=== PATIENT | male | born 1945 | race Caucasian/White ===

== ENCOUNTER → 2016-07-07 | Outpatient (CLI) | payer MEDICARE, BC ==
--- NOTE | 2016-07-07 11:47 | MRI ---
EXAM DESCRIPTION: Lumbar Spine w/o Contrast CLINICAL HISTORY: LOW BACK PAIN COMPARISON: None Available. TECHNIQUE: MRI of the lumbar spine is performed according to our usual protocol with axial and sagittal multi sequence imaging. FINDINGS: Vertebral body height, marrow signal and AP alignment are unremarkable. There is endplate edema noted at multiple levels. Intervertebral disc space at S1-S2 noted. L1-2: Facet degeneration, ligamentum flavum thickening and a 3 mm circumferential disc bulge. The midline diameter of the spinal canal is narrowed to 11 mm. Bilateral neuroforamen are adequate. L2-3: Vertebral disc osteophyte complex and facet degeneration. The midline diameter spinal canal is narrowed to 9 mm due to the 4 mm circumferential disc osteophyte complex. Bilateral neuroforamen are mildly narrowed. L3-4: There is a Schmorl's node noted within the inferior endplate of L3. There is extensive surrounding edema noted within the marrow. The midline diameter of the spinal canal is adequate there is moderate bilateral neuroforaminal narrowing, right greater than left. L4-5: Circumferential disc osteophyte complex and facet degeneration. The midline diameter of the thecal sac is mildly narrowed at 9 mm. Schmorl's node noted within the inferior endplate of L4. No significant surrounding edema noted within the marrow. Bilateral neuroforamen are mildly narrowed, left greater than right. L5-S1: Circumferential disc osteophyte complex and facet degeneration. The midline diameter of the thecal sac is mildly narrowed to 9 mm. Severe right and moderate left neuroforaminal narrowing. IMPRESSION: 1. Today's exam demonstrates multilevel degenerative change as described above. There is an acute Schmorl's node along the inferior endplate of L3 which could result in localized back pain. 2. Multilevel neuroforaminal narrowing with contact of the exiting right L5 nerve root. This could result in a right L5 radiculopathy, if the patient is symptomatic. Electronically signed by: Man Rodrigues MD 07/07/2016 11:46 AM CDT
== END | disposition home or self-care (01) ==
LOC: MRI 07:37
PROVIDERS: ATTEND Family Medicine
DX: M54.5 Low back pain (principal); M47.896 Other spondylosis, lumbar region

== ENCOUNTER → 2016-07-14 | Outpatient (CLI) | payer MEDICARE, BC ==
--- NOTE | 2016-07-14 10:18 | RAD ---
EXAM DESCRIPTION: Pelvis CLINICAL HISTORY: 71 years Male, PAIN IN RT HIP IMPRESSION: Single view of the pelvis demonstrates degenerative change of the lower lumbar spine, pubic symphysis and bilateral sacral iliac joints. The joint spaces of the hips are symmetrical and grossly unremarkable. No definitive fracture on today's study. Electronically signed by: Man Rodrigues MD 07/14/2016 10:17 AM CDT
== END | disposition home or self-care (01) ==
LOC: RAD 09:14
PROVIDERS: ATTEND Orthopaedic Surgery
DX: M25.551 Pain in right hip (principal)

== ENCOUNTER → 2016-07-22 | Outpatient (CLI) | payer MEDICARE, BC | END | disposition home or self-care (01) | LOC: GMAB 11:56 | PROVIDERS: ATTEND Family Medicine | DX: Z12.5 Encounter for screening for malignant neoplasm of prostate (principal); I10 Essential (primary) hypertension; R53.82 Chronic fatigue, unspecified | CPT/HCPCS: 84403; 84443; G0103 ==

== ENCOUNTER → 2016-08-18 | Outpatient (CLI) | payer MEDICARE, BC | END | disposition home or self-care (01) | LOC: YCFC.O 08:48 | PROVIDERS: ATTEND Anesthesiology Pain Medicine | DX: Z79.891 Long term (current) use of opiate analgesic (principal) ==

== ENCOUNTER → 2016-12-16 | Outpatient (CLI) | payer MEDICARE | END | disposition home or self-care (01) | LOC: YCFC.O 15:20 | PROVIDERS: ATTEND Anesthesiology Pain Medicine | DX: Z79.891 Long term (current) use of opiate analgesic (principal) ==

== ENCOUNTER → 2017-05-18 | Outpatient (CLI) | payer MEDICARE ==
--- NOTE | 2017-05-19 08:03 | US ---
EXAM DESCRIPTION: Carotid Duplex CLINICAL HISTORY: CAROTID ARTERY STENOSIS WO CEREBRAL INFARCTION COMPARISON: None Available. TECHNIQUE: Bilateral duplex carotid sonography with grayscale, color Doppler, and spectral pulse Doppler evaluation. FINDINGS: On the right, peak CCA velocities are 85/20 cm/s. Peak ICA velocities are 63/25 cm/s with an ICA/CCA ratio of 0.7. Antegrade flow in the external carotid and vertebral vessel is demonstrated. Visually intimal thickening in the common carotid artery with mild soft and echogenic plaque at the origin of the internal carotid artery is evident without significant stenosis. On the left, diffuse intimal thickening in the common carotid artery is present with focal echogenic and calcified plaque at the carotid bifurcation with a luminal diameter stenosis significantly less than 50% visually. Antegrade flow in the external carotid and vertebral vessel is demonstrated. The peak left CCA velocities are 91/17 cm/s with peak ICA velocities of 59/21 cm/s. The ICA/CCA ratio is normal at 0.6. IMPRESSION: 1. Interval thickening with mild plaque formation at both carotid bifurcations left slightly greater than right without evidence of hemodynamically significant stenosis. Doppler evaluation demonstrates no evidence of velocity acceleration or significant turbulence. 2. Antegrade flow both vertebral arteries and external carotid arteries. Electronically signed by: Lars Schmidt MD 05/19/2017 8:02 AM [facility]
== END ==
LOC: US 08:30
PROVIDERS: ATTEND Family Medicine
DX: I65.23 Occlusion and stenosis of bilateral carotid arteries (principal)

== ENCOUNTER → 2018-08-24 | Outpatient (CLI) | payer MEDICARE | LOC: GMAE 11:37 | PROVIDERS: ATTEND Family Medicine | DX: I10 Essential (primary) hypertension (principal); E11.9 Type 2 diabetes mellitus without complications; E78.2 Mixed hyperlipidemia ==

== ENCOUNTER → 2019-03-23 | Outpatient (CLI) | payer MEDICARE ==
--- NOTE | 2019-03-23 16:31 | MRI ---
EXAM DESCRIPTION: Lumbar Spine w/o Contrast CLINICAL HISTORY: Intervertebral disc disorders with radiculopathy, lumbar region COMPARISON: July 07, 2016 TECHNIQUE: Multiplanar, multisequence MRI of the lumbar spine was performed without contrast. FINDINGS: Lumbar vertebral body heights are maintained. 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 Transitional anatomy. The designated L5-S1 disc space seen on transaxial T2 image 8 of series 501 to correspond to the prior imaging study. A rudimentary S1-S2 disc space seen. Moderate patchy marrow edema is seen with Modic type I degenerative endplate signal changes from posterior Modic type II endplate signal changes are seen at L3-4 increased from previous. Mild Modic type I endplate signal changes seen posteriorly towards the left at L4-5 and posteriorly at L5-S1. Mild marrow edema seen in the right greater than left pedicles at L5-S1 suggesting stress reactive marrow edema. Desiccation of the disc space and moderate to severe disc space narrowing throughout the lumbar spine is increased from previous exam. Anterior disc bulging and osteophytic ridging throughout the lumbar spine is seen. Conus medullaris terminates at L1-L2 and is unremarkable. Visualized intra-abdominal retroperitoneal structures show no acute findings. Schmorl's nodes are again seen at L3-4 and L4-5 without marrow edema. L1-2 2 to 3 mm broad-based disc bulge and mild facet arthropathy. No spinal canal stenosis. Mild left foraminal encroachment. L2-3 Trace retrolisthesis of L2 on L3 is again seen with broad-based disc bulge indenting the ventral aspect of the thecal sac. Mild acquired spinal canal stenosis. Thecal sac measures 7.5 mm AP centrally. Mild bilateral foraminal encroachment. L3-4 Endplate irregularity. 3 to 4 mm posterior disc osteophytic ridging is again seen with posterior epidural lipomatosis resulting in moderate spinal canal stenosis. The thecal sac measures 6 mm AP centrally. Moderate left and severe right foraminal encroachment is again seen. L4-5 Moderate posterior disc space narrowing. Moderate circumferential epidural lipomatosis. Mild facet hypertrophic and degenerative changes. Mild spinal canal stenosis. Thecal sac measures 7 mm AP centrally. Trace retrolisthesis at this level again seen with multifactorial moderate bilateral foraminal encroachment. L5-S1 Moderate disc space narrowing. Vacuum disc. Posterior disc osteophytic ridging with moderate right greater than left facet hypertrophic and degenerative changes increased from previous. Fluid in the right facet joint is also increased from previous. Mild epidural lipomatosis. Mild to moderate spinal canal stenosis. The thecal sac measures 6 mm AP centrally. Severe right and left foraminal encroachment with loss of normal fat signal from around the exiting L5 nerve root. IMPRESSION: Transitional anatomy. Rudimentary S1-S2 disc space. 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 Worsening spondylitic changes of the lumbar spine compared to previous exam. Mild to moderate spinal canal stenosis from L2 through S1 is seen with multilevel moderate to severe foraminal encroachment as described level by level above. Foraminal encroachment is most significant right greater than left at L5-S1 and on the right at L3-4. Electronically signed by: Josué Thrasher MD 03/23/2019 4:29 PM [facility]
== END ==
LOC: MRI 13:52
PROVIDERS: ATTEND Physician Assistant
DX: M51.16 Intervertebral disc disorders with radiculopathy, lumbar region (principal); M47.26 Other spondylosis with radiculopathy, lumbar region; M48.07 Spinal stenosis, lumbosacral region

== ENCOUNTER → 2019-08-29 | Outpatient (CLI) | payer MEDICARE | LOC: GMAE 11:25 | PROVIDERS: ATTEND Family Medicine | DX: Z12.5 Encounter for screening for malignant neoplasm of prostate (principal); I10 Essential (primary) hypertension; E11.9 Type 2 diabetes mellitus without complications; E78.2 Mixed hyperlipidemia | CPT/HCPCS: 84443; G0103 ==

== ENCOUNTER → 2019-09-23 | Outpatient (CLI) | payer MEDICARE ==
--- NOTE | 2019-09-23 10:43 | RAD ---
EXAM DESCRIPTION: Pelvis CLINICAL HISTORY: PAIN IN LEFT HIP COMPARISON: July 14, 2016 IMPRESSION: Single AP supine view of the pelvis shows no acute fracture, focal bone destruction, or joint dislocation. Mild narrowing of the joint space in both hips with sclerotic changes to the superior lateral left scapula are again seen compatible with mild to moderate osteoarthritic changes. Mild bony hypertrophy of the left greater trochanter is seen. Electronically signed by: Josué Thrasher MD 09/23/2019 10:41 AM CDT
--- NOTE | 2019-09-23 12:05 | RAD ---
EXAM DESCRIPTION: Knee,Left Complete CLINICAL HISTORY: PAIN IN LEFT KNEE COMPARISON: None. FINDINGS: Standing 4 views of the left knee show severe narrowing medial tibiofemoral compartment with flattening of the weightbearing articular surface and sclerotic changes. Irregularity of the weightbearing articular surface is mainly seen on the femoral condyle. Mild joint line osteophytes. Mild calcifications of the meniscal cartilage. Moderate posterior superior and inferior osteophytes of the patella are seen. Mild narrowing of the patellofemoral compartment. Increased density in the suprapatellar bursa is seen. Mild vascular calcifications. IMPRESSION: 3 compartment osteoarthritic changes of the left knee are seen with severe advanced osteoarthritic changes of the medial tibiofemoral compartment. Small left knee joint effusion is seen. Chondrocalcinosis is identified. Electronically signed by: Josué Thrasher MD 09/23/2019 12:03 PM CDT
== END ==
LOC: RAD 08:36
PROVIDERS: ATTEND Orthopaedic Surgery
DX: M25.851 Other specified joint disorders, right hip (principal); M25.852 Other specified joint disorders, left hip; M89.352 Hypertrophy of bone, left femur; M17.12 Unilateral primary osteoarthritis, left knee; M25.462 Effusion, left knee; M11.262 Other chondrocalcinosis, left knee

== ENCOUNTER → 2019-10-10 | Outpatient (CLI) | payer MEDICARE | LOC: LAB.O 09:11 | PROVIDERS: ATTEND Orthopaedic Surgery | DX: Z01.818 Encounter for other preprocedural examination (principal) ==

== ENCOUNTER 2019-12-27 05:34 | Inpatient (IN) | payer MEDICARE ==
[2019-12-27] MEDS ORDERED: SODIUM CHL 0.9% 100ML MINI-BAG 100 ML IVPB ONE (06:40)
[2019-12-27] MEDS ORDERED: SODIUM CHLORIDE 0.9% 100ML 100 ML IVPB ONE ×2 (06:40→16:06)
[2019-12-27] MEDS ORDERED: SODIUM CHLORIDE 0.9% 250ML 250 ML ONE (06:40)
[2019-12-27] MEDS ORDERED: LACTATED RINGERS 1,000 ML ONE (06:41)
[2019-12-27] MEDS ORDERED: TRANEXAMIC ACID 1,000 MG/10 ML VIAL ONE ×2 (06:41→06:42)
[2019-12-27] MEDS ORDERED: VANCOMYCIN HCL INJ 1,000 MG VIAL IVPB ONE ×3 (06:41→12:57)
[2019-12-27] MEDS ORDERED: ceFAZolin SODIUM 1 GM VIAL ONE ×2 (06:41→16:06)
[2019-12-27] MEDS ORDERED: PROPOFOL 200 MG/20 ML VIAL IV ONE (10:00)
[2019-12-27] MEDS ORDERED: diphenhydrAMINE HCL 50 MG/ML VIAL IV ONE (10:00)
[2019-12-27] MEDS ORDERED: ePHEDrine SULF 50 MG/ML IV ONE (10:00)
[2019-12-27] MEDS ORDERED: PHENYLEPHRINE INJ 1ML 10 MG/ML VIAL IV ONE (10:00)
[2019-12-27] MEDS ORDERED: EPINEPHrine HCL AMP 1 MG/ML AMP IVPB ONE (10:00)
[2019-12-27] MEDS ORDERED: MAGNESIUM SULFATE INJ 1 GM/2 ML VIAL IVPB ONE (10:00)
[2019-12-27] MEDS ORDERED: HYDROmorphone HCL INJ 2 MG/ML VIAL ONE (10:53)
[2019-12-27] MEDS ORDERED: MIDAZOLAM INJ 5 MG/5 ML VIAL ONE (10:53)
[2019-12-27] MEDS ORDERED: FAMOTIDINE 10 MG/ML ML IV ONE (10:54)
[2019-12-27] MEDS ORDERED: ceFAZolin SODIUM 1 GM VIAL IRRIG ONE (12:08)
[2019-12-27] MEDS ORDERED: ceFAZolin SODIUM 1 GM VIAL INJ ONE ×2 (12:08→12:57)
[2019-12-27] MEDS ORDERED: BUPIVACAINE 0.5% 30 ML VIAL INJ ONE ×2 (12:10→12:52)
[2019-12-27] MEDS ORDERED: BUPIVACAINE LIPOSOME 13.3 MG/ML VIAL INJ ONE ×2 (12:12→12:52)
[2019-12-27] MEDS ORDERED: ELECTROLYTE-A 1,000 ML IVS ONE (12:35)
[2019-12-27] MEDS ORDERED: ACETAMINOPHEN 500 MG TAB PO PRN (13:16)
[2019-12-27] MEDS ORDERED: DEX 5% W/NACL 0.45% 1000ML 1,000 ML IVS PRN (13:16)
[2019-12-27] MEDS ORDERED: MAGNESIUM HYDROXIDE 30 ML UD PO PRN (13:16)
[2019-12-27] MEDS ORDERED: CYCLOBENZAPRINE HCL 10 MG TAB PO PRN (13:16)
[2019-12-27] MEDS ORDERED: ACETAMINOPHEN 325 MG TAB PO PRN (13:16)
[2019-12-27] MEDS ORDERED: NALOXONE HCL INJ 0.4 MG/ML VIAL IV PRN (13:16)
[2019-12-27] MEDS ORDERED: ZOLPIDEM TARTRATE 5 MG TAB PO PRN (13:16)
[2019-12-27] MEDS ORDERED: BISACODYL SUPPOSITORY 10 MG PR PRN (13:16)
[2019-12-27] MEDS ORDERED: ONDANSETRON INJ 4 MG/2 ML VIAL IV PRN (13:16)
[2019-12-27] MEDS ORDERED: ALUMINUM & MAGNESIUM HYDROXIDE 30 ML UD PO PRN (13:16)
[2019-12-27] MEDS ORDERED: MORPHINE SULFATE INJ 10 MG/ML VIAL IV PRN (13:16)
[2019-12-27] MEDS ORDERED: SODIUM CHLORIDE 0.9% (FLUSH) 10 ML SYG IV PRN (13:16)
[2019-12-27] MEDS ORDERED: BENZOCAINE-MENTH LOZ (CEPACOL) 1 EA LOZ MT PRN (13:16)
[2019-12-27] MEDS ORDERED: traMADol HCL 50 MG TAB PO PRN (13:16)
[2019-12-27] MEDS ORDERED: HYDROcodone 10MG/APAP 325MG 1 EA TAB PO PRN (13:16)
[2019-12-27] MEDS ORDERED: TRANEXAMIC ACID INJ 1,000 MG in SODIUM CHLORIDE 0.9% 100ML 100 ML IVPB ONE (13:16)
[2019-12-27] MEDS ORDERED: TEMAZEPAM 15 MG CAP PO PRN (13:16)
[2019-12-27] MEDS ORDERED: PROMETHAZINE HCL INJ 12.5 MG in SODIUM CHLORIDE 0.9% 50ML 50 ML IVPB PRN (13:16)
[2019-12-27] MEDS ORDERED: PROMETHAZINE HCL INJ 25 MG in SODIUM CHLORIDE 0.9% 50ML 50 ML IVPB PRN (13:16)
[2019-12-27] MEDS ORDERED: IV SET AND CAP CHANGE INJ INJ SCH (13:30)
[2019-12-27] MEDS ORDERED: HYDROmorphone PCA 0.2 MG/ML 1 BAG BAG IVPB SCH (13:30)
[2019-12-27] MEDS ORDERED: MORPHINE PCA 1 MG/ML 100 ML BAG IVPB SCH (13:30)
[2019-12-27] MEDS ORDERED: CADD ADMIN SET 1 EA PKG INJ ONE (13:44)
[2019-12-27] MEDS ORDERED: hydrOXYzine HCl 25 MG TAB ONE (14:23)
[2019-12-27] MEDS ORDERED: hydrOXYzine HCl 25 MG TAB PO PRN (14:34)
[2019-12-27] MEDS ORDERED: DEXTROSE 50% 25 GM/50 ML SYG IV PRN (14:39)
[2019-12-27] MEDS ORDERED: GLUCAGON INJ 1 MG VIAL SUBCU PRN (14:39)
--- NOTE | 2019-12-27 15:29 | RAD ---
EXAM DESCRIPTION: Knee,Left 1 or 2 Views CLINICAL HISTORY: 74 years Male, TKA COMPARISON: Left knee radiographs 09/23/2019 TECHNIQUE: 2 view radiograph of the left knee. IMPRESSION: Status post total left knee arthroplasty. Expected postoperative joint effusion. Imaged hardware appears normal in alignment and intact without fracture. No periprosthetic lucency is present to indicate hardware loosening. Postsurgical changes noted in the overlying soft tissues. Electronically signed by: Quan Michele MD 12/27/2019 3:28 PM CDT
[2019-12-27] MEDS: GABAPENTIN 300 MG CAP PO SCH ×2 (16:30→20:40)
[2019-12-27] MEDS: ceFAZolin SODIUM 2 GM in SODIUM CHLORIDE 0.9% 100ML 100 ML IVPB SCH (17:28)
[2019-12-27] MEDS: CELECOXIB 100 MG CAP PO SCH (17:29)
[2019-12-27] MEDS: INSULIN LISPRO 100 UNITS/ML PEN SUBCU SCH ×2 (17:29→20:41)
[2019-12-27] MEDS: ENALAPRIL MALEATE 5 MG TAB PO SCH (20:40)
[2019-12-27] MEDS: SIMVASTATIN 20 MG TAB PO SCH (20:40)
[2019-12-27] MEDS: DOCUSATE CALCIUM 240 MG CAP PO SCH (20:40)
[2019-12-27] MEDS ORDERED: SODIUM CHLORIDE 0.45% 1000ML 1,000 ML IVS PRN (21:15)
[2019-12-27] MEDS: VANCOMYCIN HCL INJ 1,000 MG in SODIUM CHLORIDE 0.9% 250ML 250 ML IVPB SCH (21:55)
[2019-12-27] MEDS: ENOXAPARIN SODIUM 30 MG/0.3 ML SYG SUBCU SCH (23:25)
[2019-12-28] MEDS: ceFAZolin SODIUM 2 GM in SODIUM CHLORIDE 0.9% 100ML 100 ML IVPB SCH ×2 (02:12→09:49)
[2019-12-28] MEDS: INSULIN LISPRO 100 UNITS/ML PEN SUBCU SCH ×4 (07:12→20:52)
[2019-12-28] MEDS: CELECOXIB 100 MG CAP PO SCH ×2 (07:40→16:53)
--- NOTE | 2019-12-28 07:56 | CONS ---
SUPERVISING PHYSICIAN: Lars Lance MD DATE OF CONSULTATION: 12/27/19 HISTORY OF PRESENT ILLNESS: This is a 74-year-old male patient that has a significant history of bilateral osteoarthritis of the knees. He has tried conservative measures and has actually had a knee replacement on the right side. He has failed to gain any significant pain relief and has requested that Dr. Devyn Youssef, orthopedic surgeon, perform a left total knee arthroplasty. He was admitted today to the hospital for operative intervention. There were no problems intraoperatively and I am seeing the patient postoperatively on the Medical/Surgical Floor. PAST MEDICAL HISTORY: 1. Hyperlipidemia. 2. Diabetes mellitus, type 2. 3. Osteoarthritis of the bilateral knees. 4. Hypertension. PAST SURGICAL HISTORY: 1. Right total knee arthroplasty. OUTPATIENT MEDICATIONS: 1. Citrucel. 2. Enalapril. 3. Simvastatin. 4. Metformin. 5. Gabapentin. ALLERGIES: FLEXERIL. SOCIAL HISTORY: He lives in [place]. He is . There is no history of tobacco, ETOH or illicit drug use. REVIEW OF SYSTEMS: Negative except as per history of present illness. PHYSICAL EXAMINATION: VITAL SIGNS: Temperature 97.6, heart rate 95, blood pressure 128/71, respiratory rate 20, O2 saturation 94% on room air. GENERAL: This is a 74-year-old male patient who is lying in his hospital bed. He is in no acute distress. HEENT: Normocephalic, atraumatic. Pupils are equal and reactive. Oropharynx is clear. NECK: Supple without mass. RESPIRATORY: Essentially clear to auscultation bilaterally. CARDIOVASCULAR: Regular rate and rhythm. GASTROINTESTINAL: Abdomen is soft, nondistended, nontender. Bowel sounds are positive. EXTREMITIES: He has an Iceman in place to his left knee. Bilateral pedal pulses are palpable at +2. NEUROLOGIC: Awake, alert and oriented times three. LABORATORY: Urine drug screen I s negative. Films are as per the EMR. IMPRESSION: 1. Osteoarthritis of bilateral knees status post left total knee arthroplasty, postoperative day #0. 2. Hypertension. 3. Peripheral neuropathy. 4. Hyperlipidemia. 5. Diabetes mellitus, type 2. PLAN: We will continue present supportive care. Orthopedic issues will be per Dr. Devyn Youssef, orthopedic surgeon. He will begin his physical therapy for strengthening and conditioning tomorrow. His home medications have been restarted. I have also put him on Accuchecks with sliding scale insulin per protocol. I have encouraged good pulmonary hygiene. We will follow the patient and treat as needed. #[id number] [facility]TD[facility]
[2019-12-28] MEDS: HYDROcodone 5MG/APAP 325MG 1 EA TAB PO PRN ×2 (08:26→18:39)
[2019-12-28] MEDS: MAGNESIUM OXIDE 400 MG TAB PO SCH (08:27)
[2019-12-28] MEDS: metFORMIN HCL 500 MG TAB PO SCH (08:27)
[2019-12-28] MEDS: GABAPENTIN 300 MG CAP PO SCH ×3 (08:27→20:40)
--- NOTE | 2019-12-28 08:43 | PN ---
DATE: 12/28/19 SUBJECTIVE: Mr. Tamez is doing well. His pain is well controlled. OBJECTIVE: Afebrile. Vital signs stable. Dressing is clean, dry and intact. ASSESSMENT: Status post total knee arthroplasty. PLAN: The plan at this point is for weightbearing as tolerated today. #[id number] MTDD
[2019-12-28] MEDS: ENALAPRIL MALEATE 5 MG TAB PO SCH ×2 (09:00→20:40)
[2019-12-28] MEDS: VANCOMYCIN HCL INJ 1,000 MG in SODIUM CHLORIDE 0.9% 250ML 250 ML IVPB SCH (10:29)
[2019-12-28] MEDS: ENOXAPARIN SODIUM 30 MG/0.3 ML SYG SUBCU SCH ×2 (10:29→20:40)
--- NOTE | 2019-12-28 15:31 | RAD ---
PROVIDED CLINICAL HISTORY/REASON FOR EXAM: LEFT TKA Findings/impression: One intraoperative fluoroscopic images. Please see operative note Dose: 0.06 mGy Time: One second Electronically signed by: Dominic Ernandez MD 12/28/2019 3:29 PM CDT
--- NOTE | 2019-12-28 15:34 | PN ---
SUPERVISING PHYSICIAN: Lars Lance MD DATE: 12/28/19 SUBJECTIVE: The patient is up walking in the hallways with his walker and physical therapy. He has no complaints of shortness of breath or nausea. He did say last night he had some diaphoresis, but there was no chest pain. He also said he had it prior to surgery. He felt he was just nervous in regard to the surgery, but again he stressed that there was no chest pain or shortness of breath. OBJECTIVE: VITAL SIGNS: Temperature 99.2, heart rate 85, blood pressure 100/67, respiratory rate 17, O2 saturation 95% on room air. RESPIRATORY: Essentially clear to auscultation bilaterally. CARDIAC: Regular rate and rhythm. EXTREMITIES: There is a dressing to his left knee that is dry and intact. Bilateral pedal pulses are palpable at +2. NEUROLOGIC: Awake, alert and oriented times three. LABORATORY: Hemoglobin 13.1, hematocrit 38.5. Blood sugars have run between 122 and 248. All other labs and films have been reviewed via the EMR. ASSESSMENT: 1. Osteoarthritis of bilateral knees status post left total knee arthroplasty per Dr. Devyn Youssef, orthopedic surgeon, postoperative day #1. 2. Hypertension. 3. Peripheral neuropathy. 4. Hyperlipidemia. 5. Diabetes mellitus, type 2. PLAN: We will continue present supportive care. Orthopedic issues will be per Dr. Youssef, orthopedic surgeon. He will continue with his physical therapy for strengthening and conditioning. I stressed that if he has any chest pain to make sure nursing knows about it. I encouraged good pulmonary hygiene including his incentive spirometry. Hopefully, he can be discharged the next 24 to 36 hours with outpatient physical therapy. We will follow and treat as needed. #[id number] [facility]
[2019-12-28] MEDS: SIMVASTATIN 20 MG TAB PO SCH (20:39)
[2019-12-28] MEDS: DOCUSATE CALCIUM 240 MG CAP PO SCH (20:40)
[2019-12-29] MEDS: HYDROcodone 5MG/APAP 325MG 1 EA TAB PO PRN ×2 (06:06→14:41)
[2019-12-29] MEDS: INSULIN LISPRO 100 UNITS/ML PEN SUBCU SCH ×2 (07:09→11:49)
[2019-12-29] MEDS: CELECOXIB 100 MG CAP PO SCH (07:25)
[2019-12-29] MEDS: ENALAPRIL MALEATE 5 MG TAB PO SCH (09:00)
[2019-12-29] MEDS ORDERED: SODIUM CHLORIDE 0.9% (FLUSH) 10 ML SYG IV SCH (09:00)
[2019-12-29] MEDS: GABAPENTIN 300 MG CAP PO SCH ×2 (09:04→14:30)
[2019-12-29] MEDS: MAGNESIUM OXIDE 400 MG TAB PO SCH (09:04)
[2019-12-29] MEDS: ENOXAPARIN SODIUM 30 MG/0.3 ML SYG SUBCU SCH (09:04)
[2019-12-29] MEDS: metFORMIN HCL 500 MG TAB PO SCH (09:04)
[2019-12-29 14:03] VITALS: BP 104/70; TEMP 98.6; O2SAT 96
--- NOTE | 2019-12-30 07:58 | DS ---
SUPERVISING PHYSICIAN: Lars Lance MD ADMISSION DIAGNOSIS: 1. Osteoarthritis of bilateral knees status post left total knee arthroplasty, postoperative day #0. 2. Hypertension. 3. Peripheral neuropathy. 4. Hyperlipidemia. 5. Diabetes mellitus, type 2. DISCHARGE DIAGNOSIS: 1. Osteoarthritis of bilateral knees status post left total knee arthroplasty per Dr. Devyn Youssef, orthopedic surgeon, postoperative day #2. 2. Hypertension. 3. Peripheral neuropathy. 4. Hyperlipidemia. 5. Diabetes mellitus, type 2. REASON FOR HOSPITALIZATION: This is a 74-year-old male patient that has a significant history of bilateral osteoarthritis of the knees. He has tried conservative measures and has actually had a knee replacement on the right side. He has failed to gain any significant pain relief and has requested that Dr. Devyn Youssef, orthopedic surgeon, perform a left total knee arthroplasty. He was admitted today to the hospital for operative intervention. There were no problems intraoperatively and I am seeing the patient postoperatively on the Medical/Surgical Floor. LABORATORY: Postoperative hemoglobin 13.1, hematocrit 38.5. Blood sugars ranged between 140 and 226. CONSULTATION: Hospitalist, see Rachael Menjivar's report for details. PROCEDURE: Please see Dr. Youssef's operative report for details. HOSPITAL COURSE: Mr. Tamez was admitted for elective left total knee arthroplasty on 12/27/19. He had no intraoperative complications. He did well postoperatively and advanced with his physical therapy. He was felt clinically stable enough to discharge to continue with outpatient management. DISCHARGE ASSESSMENT: VITAL SIGNS: Discharge vital signs showed temperature 98.6, pulse 86, blood pressure 104/70, respirations 70, saturation 96% on room air. GENERAL: The patient was resting comfortably. He is alert. CHEST: Lungs clear to auscultation. HEART: Regular rate and rhythm. ABDOMEN: Soft, nontender, positive bowel sounds. EXTREMITIES: Left knee had an island dressing in place that was clean and dry with no signs of infection. Distal pulses strong. Capillary refill brisk. NEUROLOGIC: Alert and oriented x3. PLAN: Mr. Tamez was discharged to continue with his [facility]. He is to followup with Dr. Youssef's office as scheduled. He was to continue his home medications as instructed and start Xarelto for DVT prophylaxis per protocol. He was given warnings to either call Dr. Youssef for any questions or concerns or return to the Emergency Department if he needed. Diet was diabetic diet as tolerated. Activity as per physical therapy, utilize a walker. Wound management per Dr. Youssef. He may shower, but no tub baths. His medications on discharged included Xarelto 10 mg daily for 8 days. All other medications as prior to hospital were continued. CONDITION ON DISCHARGE: Stable and improved. DISPOSITION: The patient was discharged to outpatient rehab. #[id number] [facility]
--- NOTE | 2019-12-30 08:24 | PN ---
DATE: 12/29/19 SUBJECTIVE: Mr. Tamez is doing well. He has good pain control. OBJECTIVE: Afebrile. Vital signs stable. Wound is clean. There are no signs or symptoms of .Infection ASSESSMENT: Status post total knee arthroplasty. PLAN: The plan at this point is for him to be discharged to home with outpatient physical therapy. #[id number] [facility]TDD
--- NOTE | 2019-12-30 08:29 | OP ---
DATE OF PROCEDURE: 12/27/19 PREOPERATIVE DIAGNOSIS: 1. Left knee osteoarthritis. POSTOPERATIVE DIAGNOSIS: 1. Left knee osteoarthritis. PROCEDURE: 1. Total knee arthroplasty. SURGEON: Devyn Youssef MD. CAREER DEVELOPMENT SPECIALIST: Dario Moraes CST, SA-C. ANESTHESIA: General anesthesia. COMPLICATIONS: None. FINDINGS: Severe osteoarthritis. INDICATION: Mr. Tamez has a history of knee pain that has been associated with arthritis. He attempted conservative measures, however, has failed to gain relief. Because of his ongoing, he requested operative intervention. After discussing the risks, benefits and alternatives to that, the patient has given informed consent for total knee arthroplasty. PROCEDURE: The patient was brought to the Operating Room and placed in supine position. General anesthesia was induced and the patient's leg was sterilely prepped and draped. Following prepping and draping, the distal femur was exposed and using an intramedullary guide, the distal femoral cut was made. The appropriate sized cutting block was measured, pinned into place, and the anterior, posterior, and chamfer cuts were made. The ACL was transected and the tibia was subluxed. Both the medial and lateral menisci were removed. An intramedullary guide was used to make the proximal tibial cut. The appropriate sized base plate was placed and a trial polyethylene was placed. The trial femur was placed, the knee was reduced, and the knee was taken through a range of motion. The knee was stable in anterior, posterior, varus and valgus stress. The patella tracked anatomically without evidence of subluxation or dislocation. After trialing, the trial components were removed and the bony surfaces were thoroughly irrigated with saline. Following irrigation, the surfaces were dried and the final components were cemented into place. The excess cement was removed and the remaining cement was allowed to cure. The knee was again taken through a range of motion to confirm stability. The wound was then irrigated with saline and closure was performed using PDS to approximate the arthrotomy followed by closure of the subcutaneous tissues with a combination of running and interrupted Monocryl sutures. Sterile dressing was placed. The patient was awoken from anesthesia and taken to Recovery. COMPONENTS: Jeffery Triathlon knee, size 5 femur, size 5 tibia, 9 mm insert. POSTOPERATIVE PLAN: The patient will be weight-bearing as tolerated on postoperative day 1. [facility][id number] [facility]
[2019-12-30] MEDS ORDERED: BISACODYL SUPPOSITORY 10 MG PR ONE (21:00)
[2019-12-30] MEDS ORDERED: MAGNESIUM HYDROXIDE 30 ML UD PO ONE (21:00)
== END 2019-12-29 14:50 | disposition home or self-care (01) | DRG 470 ==
LOC: AMB 05:34 → MS 14:15
PROVIDERS: ADMIT Orthopaedic Surgery; ATTEND Nurse Practitioner Family
PROC: 0SRD0J9 Replacement of Left Knee Joint with Synthetic Substitute, Cemented, Open Approach (ICD-10-PCS; principal; 2019-12-27 11:01)
DX: M17.0 Bilateral primary osteoarthritis of knee (principal); E78.5 Hyperlipidemia, unspecified; E11.42 Type 2 diabetes mellitus with diabetic polyneuropathy; I10 Essential (primary) hypertension; M10.9 Gout, unspecified; J45.909 Unspecified asthma, uncomplicated; Z96.651 Presence of right artificial knee joint; Z88.8 Allergy status to other drugs, medicaments and biological substances; Z79.84 Long term (current) use of oral hypoglycemic drugs; Z79.899 Other long term (current) drug therapy